=== PATIENT | male | born 1955 | race Hispanic/Latino ===

== ENCOUNTER 2018-08-08 00:40 | Inpatient (IN) | payer OTHER ==
--- NOTE | 2018-08-08 00:57 | ED PDOC ---
Psych Transfer Clearance - Clearance Statement Clearance Statement: Reviewed vital signs, lab results and transfer papers. Patient clinically stable for psychiatric admission.
[2018-08-08] MEDS ORDERED: Bismuth Subsalicylate 262 mg/15 ml Sus (240 ml) PO PRN (01:16)
[2018-08-08] MEDS ORDERED: Magnesium Hydroxide Susp 30 ml UD PO PRN (01:16)
[2018-08-08] MEDS ORDERED: Alum-Mag Hydrox-Simethicone Susp (30 mL) PO PRN (01:16)
--- NOTE | 2018-08-08 01:57 | PCM.BM ---
<Khoi Pfeiffer - Last Filed: 08/08/18 01:54> Treatment Plan Problems - Problems identified on initial assessmt Suicidal Ideation Date Initiated: 08/08/18 Assessment reference: NA Status: Active Pain Date Initiated: 08/08/18 Assessment reference: NA Status: Active Hopelessness/Helplessness Date Initiated: 08/08/18 Assessment reference: NA Status: Active Altered Sleep Patterns Date Initiated: 08/08/18 Assessment reference: NA Status: Active Medication nonadherence Date Initiated: 08/08/18 Assessment reference: NA Status: Active Self Care Deficit Date Initiated: 08/08/18 Assessment reference: NA Status: Active Ineffective Coping Date Initiated: 08/08/18 Assessment reference: NA Status: Active Treatment assets and liabiliti Patient Assests: adapts well, cooperative, educated, insightful, motivated, self-reliant, negotiates basic needs, cognitively intact Patient Liabilities: physical pain, medical problems - Milieu Protocol Maintain good personal hygiene: daily Encourage regular showers, daily Remind patient to perform daily oral care, daily Assist patient to perform ADL's Conduct patient checks and document Observation sheet: Q15 minutes Maintain personal safety: every shift Educate patient to report safety concerns to staff, every shift Monitor environment for contraband/sharps Medication safety: Monitor for expected outcome, potential side effects: every shift, Assess barriers to learning: every shift, Assess readiness for medication education: every shift <Rebecca Moore - Last Filed: 08/08/18 10:26> - Diagnosis (1) Major depressive disorder Status: Acute Interventions: Medication management, Individual and group therapy, Psychoeducation 08/08/18 10:26 <Portillo Zaragoza - Last Filed: 08/09/18 08:48> Family Contact Family involvement: Famliy/SO not involved Family contact: Patient declines to allow family contact at present Family contact name: Pt refused. - Goals for Treatment Patient goals for treatment: Due to extreme pain pt unable to engage in treatment team at this time in a productive way and was unable to report goals for treatment. Discharge/Continuing Care - Education Needs Education Needs: Patient Medication, Patient Diagnosis/Disease Process, Patient Coping Skills, Patient Aftercare Safety Plan - Discharge Discharge Criteria: Tolerates medication w/o severe side effects, Free of Suicidal thoughts, Free of agitation, Normal sleep pattern, Ability to care for self, Reduction of target symptoms Discharge to:: Home, With Family - Treatment Team Participation Patient/Family/SO Statement: 08/09/18 08:43 Pt seen in treatment team on 08/08/18. Pt reported that he discontinued taking to Prozac about a week ago because he felt it was not working. Pt reported he is in constant extreme pain from his back to his foot and his chronic pain is the precipitant for his suicidal thoughts. Pt reported poor sleep due to chronic pain. Pt reported that his pain makes him think "crazy things" because he is so frustrated and wants the pain to stop. Dr. Moore discussed starting Cymbalta to help both pts depression and pain. Pt denied current SI/HI and AVT hallucinations on the unit, but was unable to contract for safety outside of the hospital. Pt reported he has been living with his daughter. Pt is oriented X4. Discussed with Family/SO: No Was Patient/Family/SO present at Treatment Team Meeting: Yes
[2018-08-08] MEDS ORDERED: Oxycodone/Acetaminophen 5/325 mg Tab PO PRN ×2 (02:23→02:24)
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
[2018-08-08 06:43] LABS: IRON 123 ug/dL (49-181)
[2018-08-08 06:55] LABS: % IRON SATURATION 41 % (20-55); TOTAL IRON BINDING CAPACITY 296 ug/dL (250-450)
[2018-08-08] MEDS: Lidocaine 5% Patch TD SCH (08:50)
[2018-08-08 09:58] LABS: PROTHROMBIN TIME 11.7 Seconds (9.8-13.1)
[2018-08-08 10:00] LABS: PARTIAL THROMBOPLASTIN TIME 27.1 Seconds (25.6-37.1)
--- NOTE | 2018-08-08 11:00 | PCM.PSYCH ---
Initial Psychiatric Evaluation - Initial Psychiatric Evaluation Type of Admission: Voluntary Legal Status: Capacity Chief Complaint (in patient's own words): Depression Patient's Reaction to Hospitalization: HPI: 63 yo male w/ h/o depression, not compliant with treatment, presents w/ worsening depression, suicidal thoughts w/o current plan, hopelessness, sleep/appetite disturbances in the context of severe and chronic pain. No AH/VH/paranoia. PMD: Dr Martita Berman PPH: Previously treated w/ Prozac and Klonopin, but not compliant with treatment, most recent hospitalization last month to [facility] PMH: Left eye with blurred vision; Left ear impairment with use of hearing aid; A Fib; CVA with left side weakness; HYN; Depression; Chronic back pain with spinal stenosis; Chronic bilateral leg pain with peripheral neuropathy;Asthma; Arthritis of the knees; Unsteady gait PSurgH: Stents to the legs x7; Epidurals x3 SH: Smokes 3ppd; drinks 4 beers on some days; denies illegal drug use; lives w/ daughter Allergies: NKDA Current Medications: Active Medications Generic Name Dose Route Start Last Admin Trade Name Freq PRN Reason Stop Dose Admin Acetaminophen 650 mg 08/08/18 01:16 Tylenol 325mg Tab PO Q4 PRN Pain, moderate (4-7) Al Hydrox/Mg Hydrox/Simethicone 30 ml 08/08/18 01:16 Maalox Plus 30 Ml PO Q4 PRN Dyspepsia Amiodarone HCl 200 mg 08/08/18 09:00 08/08/18 08:48 Cordarone PO 200 mg DAILY [facility] Administration Amlodipine Besylate 10 mg 08/08/18 09:00 08/08/18 08:47 Norvasc PO 10 mg DAILY [facility] Administration Aspirin 81 mg 08/08/18 09:00 08/08/18 08:48 Ecotrin PO 81 mg DAILY [facility] Administration Bismuth Subsalicylate 524 mg 08/08/18 01:16 Pepto-Bismol PO Q4 PRN Diarrhea Duloxetine HCl 30 mg 08/08/18 10:30 Cymbalta PO BID [facility] Enoxaparin Sodium 40 mg 08/08/18 09:00 Lovenox SC DAILY [facility] Protocol Gabapentin 400 mg 08/08/18 09:00 08/08/18 08:47 Neurontin PO 400 mg TID [facility] Administration Lidocaine 1 ea 08/08/18 09:00 08/08/18 08:50 Lidoderm TD 1 ea DAILY [facility] Administration Lorazepam 0.5 mg 08/08/18 01:16 Ativan PO 08/22/18 01:17 HS PRN Insomnia Lorazepam 1 mg 08/08/18 10:24 Ativan PO Q8 PRN Anxiety Magnesium Hydroxide 30 ml 08/08/18 01:16 Milk Of Magnesia PO HS PRN Constipation Metoprolol Tartrate 12.5 mg 08/08/18 09:00 08/08/18 08:49 Lopressor PO 12.5 mg BID [facility] Administration Nicotine 1 patch 08/08/18 10:15 Nicoderm Cq TD DAILY [facility] Tramadol HCl 50 mg 08/08/18 03:01 Ultram PO Q6 PRN Pain, moderate (4-7) Tramadol HCl 100 mg 08/08/18 03:02 08/08/18 10:26 Ultram PO 100 mg Q6 PRN Administration Pain, severe (8-10) Zolpidem Tartrate 5 mg 08/08/18 02:14 Ambien PO HS PRN Insomnia Past Psychiatric History - Past Psychiatric History Previous Treatment History: Inpatient Pertinent Medical Hx (Current Medical&Sleep Prob, Allergies): Allergies Allergy/AdvReac Type Severity Reaction Status Date / Time No Known Allergies Allergy Verified 08/08/18 00:52 Acetaminophen/Oxycodone Hydr [Percocet 10/325 mg Tab] 1 tab PO Q12 PRN #20 tab 07/14/18 Amiodarone [Cordarone] 200 mg PO DAILY #30 tab 07/14/18 Aspirin [Ecotrin] 81 mg PO DAILY #30 tabec 07/14/18 FLUoxetine [Prozac] 30 mg PO DAILY #30 cap 07/14/18 Gabapentin [Neurontin] 300 mg PO TID #90 cap 07/14/18 Lidocaine 5% [Lidoderm] 1 ea TD DAILY #30 patch 07/14/18 Metoprolol Tartrate [Lopressor] 12.5 mg PO BID #60 tab 07/14/18 Zaleplon [Sonata] 5 mg PO HS PRN #30 cap 07/14/18 amLODIPine [Norvasc] 10 mg PO DAILY #30 tab 07/14/18 clonazePAM [Klonopin] 0.5 mg PO AMHS #60 tab 07/14/18 tiZANidine [Zanaflex] 4 mg PO HS #30 tab 07/14/18 Review of Systems - Psychiatric Psychiatric: As Per HPI, Anxiety, Behavioral Changes, Change in Appetite, Depression, Difficulty Concentrating, Irritability, Suicidal Ideation Mental Status Examination - Personal Presentation Personal Presentation: Looks older than stated age - Affect Affect: Constricted, Depressed - Motor Activity Motor Activity: Calm - Reliability in Providing Information Reliability in Providing Information: Fair - Speech Speech: Organized, Coherent - Mood Mood: Depressed - Formal Thought Process Formal Thought Process: No Impairment Additional comments: Denies AH/VH/paranoia - Obsessions/Compulsions Obsessions: No Compulsions: No - Cognitive Functions Orientation: Person, Place, Situation, Time Sensorium: Alert Attention/Concentration: Attentive Estimate of Intelligence: Average Judgement: Intact, as evidence by: Insight regarding need for hospitalization Memory: Recent intact, as evidence by: Ability to recall events of the day - Risk Risk: Diminished functioning - Strength & Assets Inventory Strength & Assets Inventory: Cooperative DSM 5 DX - DSM 5 DSM 5 Diagnosis: Major Depressive Disorder - Recommended/Plan of Treatment Treatment Recommendations and Plan of Treatment: Major Depressive Disorder -Admit to psychiatry unit -Individual and group therapy -Psychoeducation -Medicine consult -Pain management consult -Start Cymbalta for depression -Nicotine patch -Disposition planning Projected ELOS: 5-10 days Discharge Plan and Discharge Criteria: Discharge when patient is psychiatrically stable - Smoking Cessation Smoking Cessation Initiated: Yes
[2018-08-08 11:02] VITALS: BMI 35.9
[2018-08-08 11:28] LABS: FOLATE 9.7 ng/mL
[2018-08-08] MEDS: Enoxaparin 40 mg Syringe SC SCH (13:18)
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
[2018-08-09] MEDS: Lidocaine 5% Patch TD SCH (08:31)
[2018-08-09] MEDS: Enoxaparin 40 mg Syringe SC SCH (08:35)
--- NOTE | 2018-08-09 08:55 | PCM.PYCHPN ---
Psychiatric Progress Note - Psychiatric Progress Note Patient seen today, length of contact: Pt evaluated, case discussed w/ team, chart reviewed Patient Chief Complaint: Depression Problems Identified/Issues Discussed: Patient continues to report feeling depressed, w/ low energy, low motivation, anhedonia and "bad thoughts," but patient would not specify what that means. He denies acute suicidal ideation/intent. He continues to report chronic pain and was evaluated by pain manager case management. Medication Change: No Medical Record Reviewed: Yes Consults ordered or reviewed: Medicine consult, Pain management consult Mental Status Examination - Cognitive Function Orientation: Person, Place, Situation, Time Memory: Intact Attention: WNL Concentration: WNL Association: WN Fund of Knowledge: WN - Mood Mood: Depressed - Affect Affect: Constricted, Depressed - Speech Speech: Appropriate - Formal Thought Process Formal Thought Process: No Impairment Psychotic Thoughts and Behaviors: No AH/VH/paranoia/delusions - Suicidal Ideation Suicidal Ideation: No - Homicidal Ideation Homicidal Ideation: No Goal/Treatment Plan - Goal/Treatment Plan Need for Continued Stay: Remain at risks for inpatient hospitalization, Severe depression anxiety Progress Toward Problem(s) and Goals/Treatment Plan: Major Depressive Disorder -Individual and group therapy -Psychoeducation -Medicine consult -Pain management consult -Continue Cymbalta -Nicotine patch -Disposition planning
[2018-08-10] MEDS: Enoxaparin 40 mg Syringe SC SCH (08:24)
[2018-08-10] MEDS: Lidocaine 5% Patch TD SCH (08:32)
--- NOTE | 2018-08-10 11:15 | PCM.PYCHPN ---
Psychiatric Progress Note - Psychiatric Progress Note Patient seen today, length of contact: Pt evaluated, case discussed w/ team, chart reviewed Patient Chief Complaint: Depression Problems Identified/Issues Discussed: Patient continues to report feeling depressed, w/ constricted affect, intermittent SI w/o current plan, w/ low energy, low motivation, anhedonia. He continues to report chronic pain and was evaluated by pain home management supervisor. Medication Change: No Medical Record Reviewed: Yes Consults ordered or reviewed: Medicine consult, Pain management consult Mental Status Examination - Cognitive Function Orientation: Person, Place, Situation, Time Memory: Intact Attention: WNL Concentration: WNL Association: WNL Fund of Knowledge: [facility] [place] Decription of patient's judgement and insights: Improving I/J - Mood Mood: Depressed - Affect Affect: Constricted, Depressed - Speech Speech: Appropriate - Formal Thought Process Formal Thought Process: No Impairment Psychotic Thoughts and Behaviors: No AH/VH/paranoia/delusions - Suicidal Ideation Suicidal Ideation: Yes Plan: Suicidal ideation w/o plan or intent - Homicidal Ideation Homicidal Ideation: No Goal/Treatment Plan - Goal/Treatment Plan Need for Continued Stay: Remain at risks for inpatient hospitalization, Severe depression anxiety Progress Toward Problem(s) and Goals/Treatment Plan: Major Depressive Disorder -Individual and group therapy -Psychoeducation -Medicine consult -Pain management consult -Continue Cymbalta -Nicotine patch -Disposition planning
[2018-08-11] MEDS: Enoxaparin 40 mg Syringe SC SCH (09:19)
[2018-08-11] MEDS: Lidocaine 5% Patch TD SCH (09:43)
--- NOTE | 2018-08-11 12:45 | PCM.PYCHPN ---
Psychiatric Progress Note - Psychiatric Progress Note Patient seen today, length of contact: Pt evaluated, case discussed w/ team, chart reviewed Patient Chief Complaint: feeling little down, chronic pain, insomnia wanted to kill himself because of pain is being followed medicine receiving prn tramadol Problems Identified/Issues Discussed: alteration in mood, safety, pain, coping DSM 5 Symptoms Update: some minor improvement mood Medication Change: No Medical Record Reviewed: Yes Consults ordered or reviewed: pt being followed hospitalist Mental Status Examination - Cognitive Function Orientation: Person, Place, Situation, Time Memory: Intact Attention: WNL Concentration: WNL Association: WNL Fund of Knowledge: WNL - Mood Mood: Depressed - Affect Affect: Constricted, Depressed - Speech Speech: Appropriate - Formal Thought Process Formal Thought Process: No Impairment - Suicidal Ideation Suicidal Ideation: Yes - Homicidal Ideation Homicidal Ideation: No Goal/Treatment Plan - Goal/Treatment Plan Need for Continued Stay: Remain at risks for inpatient hospitalization, Severe depression anxiety Progress Toward Problem(s) and Goals/Treatment Plan: inpt milieu vital signs/clinical assessment per protocol and clinical status falls precautions constipation precautions discharge planning in progress - Smoking Cessation Smoking Cessation Initiated: No Reason for not providing: defers
[2018-08-12] MEDS: Lidocaine 5% Patch TD SCH (09:24)
[2018-08-12 16:51] VITALS: O2SAT 97
--- NOTE | 2018-08-12 17:20 | PCM.PYCHPN ---
Psychiatric Progress Note - Psychiatric Progress Note Patient seen today, length of contact: Pt evaluated, case discussed w/ team, chart reviewed Patient Chief Complaint: feeling less depressed pain in controlled with current medication, denies notable side effects. staff report pt is rx adherent. seen about unt. Problems Identified/Issues Discussed: alteration in mood, safety, pain, coping Medical Problems: per chart Diagnostic Results: per psychiatry, per medicine, per nursing, per perinatal social worker DSM 5 Symptoms Update: improvement mood pain controlled with current rx Medication Change: No Medical Record Reviewed: Yes Consults ordered or reviewed: pt being followed by medical team Mental Status Examination - Cognitive Function Orientation: Person, Place, Situation, Time Memory: Intact Attention: WNL Concentration: WNL Association: WNL Fund of Knowledge: [facility] Decription of patient's judgement and insights: impaired - Mood Mood: Depressed - Affect Affect: Constricted, Depressed - Speech Speech: Appropriate - Formal Thought Process Formal Thought Process: No Impairment - Suicidal Ideation Suicidal Ideation: Yes - Homicidal Ideation Homicidal Ideation: No Goal/Treatment Plan - Goal/Treatment Plan Need for Continued Stay: Remain at risks for inpatient hospitalization, Severe depression anxiety Progress Toward Problem(s) and Goals/Treatment Plan: inpt milieu vital signs/clinical assessment per protocol and clinical status falls precautions constipation precautions review possible cognitive chanes parasomnias discharge planning in progress - Smoking Cessation Smoking Cessation Initiated: Yes
[2018-08-13 05:52] VITALS: BP 146/90; PULSE 60; RESP 19; TEMP 98.1
[2018-08-13] MEDS: Lidocaine 5% Patch TD SCH (09:03)
--- NOTE | 2018-08-13 10:17 | PCM.PYCHDC ---
Mental Status Examination - Mental Status Examination Orientation: Person, Place, Situation, Time Memory: Intact Mood: Neutral Affect: Broad Speech: Appropriate Attention: WNL Concentration: WNL Association: WNL Fund of Knowledge: WNL Formal Thought Process: No Impairment Description of patient's judgement and insight: Fair I/J Psychotic Thoughts and Behaviors: No AH/VH/paranoia/delusions Suicidal Ideation: No Current Homicidal Ideation?: No Discharge Summary - Discharge Note Reason for Hospitalization: HPI: 63 yo male w/ h/o depression, not compliant with treatment, presents w/ worsening depression, suicidal thoughts w/o current plan, hopelessness, sleep/appetite disturbances in the context of severe and chronic pain. No AH/VH/paranoia. PMD: Dr Martita Berman PPH: Previously treated w/ Prozac and Klonopin, but not compliant with treatment, most recent hospitalization last month to [facility] PMH: Left eye with blurred vision; Left ear impairment with use of hearing aid; A Fib; CVA with left side weakness; HYN; Depression; Chronic back pain with spinal stenosis; Chronic bilateral leg pain with peripheral neuropathy;Asthma; Arthritis of the knees; Unsteady gait PSurgH: Stents to the legs x7; Epidurals x3 SH: Smokes 3ppd; drinks 4 beers on some days; denies illegal drug use; lives w/ daughter Allergies: NKDA Consultations:: List each consultation separately and include: 1. Reason for request. 2. Findings. 3. Follow-up Consultations: Medicine consult, Pain management consult Summary of Hospital Course include:: 1. Description of specific treatment plan utilized for patients during their course of treatmen. 2. Summarize the time- course for resolution of acute symptoms and/or regressed behaviors. 3. Describe issues identified and worked on during hospitalization. 4. Describe medication utilized. 5. Describe medical problems identified and treated. 6. Reassessment of suicide risk Summary of Hospital Course: Patient was admitted to the psychiatry unit. Individual and group therapy provided. Patient seen by medicine and pain management consults, recommendations appreciated. Patient was stabilized on Cymbalta 30 mg PO BID. Patient treated for pain as per pain management recommendations with Tramadol, Lidocaine patch and Neurontin. Patient to follow-up with outpatient medical provider for continued pain management. Patient denies acute depression/anxiety/AH/VH/paranoia/SI/HI. He is psychiatrically stable for discharge with outpatient follow-up. - Diagnosis (1) Major depressive disorder Current Visit: Yes Status: Acute - Final Diagnosis (DSM 5) Condition upon Discharge: STABLE DSM 5: Major Depressive Disorder Disposition: HOME/ ROUTINE Follow-up Treatment Plan: Patient is psychiatrically stable for discharge with continued psychiatric and medical follow-up. Prescriptions/Medication Reconciliation: Amiodarone [Cordarone] 200 mg PO DAILY #30 tab amLODIPine [Norvasc] 10 mg PO DAILY #30 tab Aspirin [Ecotrin] 81 mg PO DAILY #30 tabec DULoxetine [Cymbalta] 30 mg PO BID #60 ecc Gabapentin [Neurontin] 400 mg PO TID #90 cap Lidocaine 5% [Lidoderm] 1 ea TD DAILY #30 patch Metoprolol Tartrate [Lopressor] 12.5 mg PO BID #60 tab traMADol [Ultram] 100 mg PO Q8 PRN #30 tab PRN Reason: Pain, Severe (8-10) - Smoking Cessation Smoking Cessation Medication prescribed: Yes Reason for not providing: Provided during admission; patient declined outpatient prescription - Antipsychotic Medications Pt discharged on 2 or more routine antipsychotic medications: No
== END 2018-08-13 14:30 | disposition home or self-care (01) | DRG 426 ==
LOC: H.ER 00:40 → H.STEP 00:53
PROVIDERS: ADMIT Psychiatry & Neurology Psychiatry; ATTEND Psychiatry & Neurology Psychiatry
PROC: GZHZZZZ Group Psychotherapy (ICD-10-PCS; principal; 2018-08-08)
DX: F32.9 Major depressive disorder, single episode, unspecified (principal); E11.42 Type 2 diabetes mellitus with diabetic polyneuropathy; E11.51 Type 2 diabetes mellitus with diabetic peripheral angiopathy without gangrene; E66.9 Obesity, unspecified; G47.00 Insomnia, unspecified; G89.29 Other chronic pain; Z91.19 Patient's noncompliance with other medical treatment and regimen; Z91.14 Patient's other noncompliance with medication regimen; R45.851 Suicidal ideations; Z86.73 Personal history of transient ischemic attack (TIA), and cerebral infarction without residual deficits; I48.91 Unspecified atrial fibrillation; Z68.36 Body mass index [BMI] 36.0-36.9, adult; M17.0 Bilateral primary osteoarthritis of knee; M54.16 Radiculopathy, lumbar region; M48.00 Spinal stenosis, site unspecified; I10 Essential (primary) hypertension; Z99.3 Dependence on wheelchair; F17.210 Nicotine dependence, cigarettes, uncomplicated